=== PATIENT | female | born 1995 | race Caucasian/White ===

== ENCOUNTER 2016-09-01 06:41 | Emergency (ER) ==
[2016-09-01] MEDS ORDERED: MOTRIN PO ONE (07:08)
--- NOTE | 2016-09-01 07:16 | PROVIDER DOCUMENTATION ---
HPI-Female /OB/Breast - General Chief Complaint: Abdominal Pain Stated Complaint: ABD PAIN/VOMITING Time Seen by Provider: 09/01/16 07:04 Source: reports: patient Allergies/Adverse Reactions: Patient Allergies Allergy/AdvReac Type Severity Reaction Status Date / Time ondansetron HCl * Allergy Mild RASH Verified 09/01/16 06:58 [From Zofran] Home Medications: Home Medication List Medication Instructions Recorded Confirmed Last Taken Type Ibuprofen [Motrin] 800 mg PO TID PRN #30 tablet 09/01/16 Unknown Rx - History of Present Illness-Female /OB Nature of Presenting Problem: Pt startted her period last night and had severe cramps and tylenol didn't work. She has known endometriosis which has been treated twice laproscopically and has been stable until this period. Review of Systems - Adult - REVIEW OF SYSTEMS - ADULT Constitutional: denies: chills, fever Eyes: denies: discharge, blurred vision Ears, Nose, Mouth & Throat: denies: hearing loss, nose pain, throat swelling Cardiovascular: denies: chest pain, irregular heart rate, syncope Respiratory: denies: dyspnea on exertion, hemoptysis Gastrointestinal: denies: abdominal pain, constipation, diarrhea, difficulty swallowing, nausea, poor appetite, vomiting Genitourinary: denies: dysuria, hematuria Integumentary: denies: hives, mole changes Neurological: denies: ataxia, paresthesia, tremors Psychiatric: reports: no symptoms reported Endocrine: denies: goiter, cold intolerance, heat intolerance Hematologic/Lymphatic: denies: low blood count, lymphedema Allergic/Immunologic: denies: eczema, frequent infections, hay fever Past History - Adult - PAST MEDICAL HISTORY-ADULT Review of Records: reports: Nursing Assessment Review, Medications Reviewed Major Childhood Illnesses: reports: denies history Obstetrical/Gynecological: reports: endometriosis - PRIOR SURGERIES/PROCEDURES Surgical/Procedure History: reports: none, tonsillectomy - PRIOR HOSPITALIZATIONS Prior Hospitalizations: reports: none - IMMUNIZATION STATUS Childhood Immunizations: See Nurse Assessment Flu Vaccine: See Nurse Assessment - FAMILY HISTORY Family History: reviewed, not pertinent Physical Exam-General - PHYSICAL EXAM-ADULT Initial Vital Signs Reviewed: Yes - CONSTITUTIONAL General Appearance: appears well, alert, no apparent distress - EYES Eyes: PERRL/EOMI, pink conjunctivae - HEAD, EARS, NOSE, MOUTH & THROAT HENMT: normocephalic/atraumatic, moist mucous membranes, normal ENT inspection - RESPIRATORY Respiratory: lungs clear, normal breath sounds, no pleuratic chest pain, no respiratory distress, no accessory muscle use - CARDIOVASCULAR Cardiovascular: normal peripheral pulses, regular rate, rhythm, no edema, no gallop, no JVD, no murmur - CHEST (BREASTS) Chest/Breast: no tenderness - GASTROINTESTINAL (ABDOMEN) Abdominal Exam: normal bowel sounds, non tender, soft, no organomegaly, no pulsatile mass - GENITOURINARY Female Genitalia/Pelvic Exam: other (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) - LYMPHATIC Lymphatic: no adenopathy - MUSCULOSKELETAL Back Exam: normal inspection, no CVA tenderness, no vertebral tenderness Extremity: normal range of motion, non-tender, normal gait, normal inspection - SKIN Integumentary: normal color, normal turgor, warm/dry, other (numerous tatoos) - NEUROLOGIC Neurologic: sausage stuffer II-XII nml as tested, grossly normal, no motor/sensory deficits - PSYCHIATRIC Psych/Mental Status: normal mood/affect, normal thought content, normal thought process, oriented x 3 Progress - PLAN OF CARE/RESULTS Progress/Plan/Lab Results: Laboratory Tests 09/01/16 09/01/16 06:54 06:54 WBC 6.10 RBC 4.19 L Hgb 13.1 Hct 39.5 MCV 94.3 MCH 31.3 H MCHC 33.2 RDW Std Deviation 14.0 Plt Count 100 L MPV Not Reportable Immature Gran % (Auto) 0.0 Neut % (Auto) 40.5 L Lymph % (Auto) 45.6 Hill % (Auto) 11.1 H Eos % (Auto) 2.5 Baso % (Auto) 0.3 Immature Gran # (Auto) 0.00 Neut # (Auto) 2.47 Lymph # (Auto) 2.78 Hill # (Auto) 0.68 H Eos # (Auto) 0.15 Baso # (Auto) 0.02 Segmented Neutrophils 52 Lymphocytes 42 Monocytes 4 Eosinophils 2 Large Platelets OCCASIONAL Sodium 144 Potassium 3.6 Chloride 105 Carbon Dioxide 29 Anion Gap 10 BUN 11 Creatinine 0.9 Estimated GFR/1.73 m2 > 60 BUN/Creatinine Ratio 12 Glucose 87 Calculated Osmolality 286 Calcium 8.8 Total Bilirubin 0.21 AST 13 ALT 11 Alkaline Phosphatase 54 Total Protein 6.8 Albumin 4.0 Globulin 2.8 Albumin/Globulin Ratio 1.4 Orders Category Date Time Status ED: Urine Bedside ORDERED Care 09/01/16 06:53 Active CBC WITH DIFF [HEME] Stat Lab 09/01/16 06:54 Completed COMPREHENSIVE METABOLIC PANEL [CHEM] Stat Lab 09/01/16 06:54 Completed Ibuprofen [Motrin] Med 09/01/16 07:08 Discontinued 800 mg PO NOW ONE Vital Signs Temp Pulse Resp BP Pulse Ox 09/01/16 06:45 97.9 F 88 18 106/65 100 ondansetron HCl * [From Zofran] Allergy (Mild, Verified 09/01/16 06:58) RASH No Home Medications 09/01/16 I&O 08/31/16 09/01/16 09/02/16 06:59 06:59 06:59 Output Total 6 Balance -6 Laboratory 09/01/16 09/01/16 06:54 06:54 WBC 6.10 RBC 4.19 L Hgb 13.1 Hct 39.5 MCV 94.3 MCH 31.3 H MCHC 33.2 RDW Std Deviation 14.0 Plt Count 100 L MPV Not Reportable Immature Gran % (Auto) 0.0 Neut % (Auto) 40.5 L Lymph % (Auto) 45.6 Hill % (Auto) 11.1 H Eos % (Auto) 2.5 Baso % (Auto) 0.3 Immature Gran # (Auto) 0.00 Neut # (Auto) 2.47 Lymph # (Auto) 2.78 Hill # (Auto) 0.68 H Eos # (Auto) 0.15 Baso # (Auto) 0.02 Segmented Neutrophils 52 Lymphocytes 42 Monocytes 4 Eosinophils 2 Large Platelets OCCASIONAL Sodium 144 Potassium 3.6 Chloride 105 Carbon Dioxide 29 Anion Gap 10 BUN 11 Creatinine 0.9 Estimated GFR/1.73 m2 > 60 BUN/Creatinine Ratio 12 Glucose 87 Calculated Osmolality 286 Calcium 8.8 Total Bilirubin 0.21 AST 13 ALT 11 Alkaline Phosphatase 54 Total Protein 6.8 Albumin 4.0 Globulin 2.8 Albumin/Globulin Ratio 1.4 - REASSESSMENT Reassessment #1 Time Reassessed: 08:15 (ibuprofen helping and satisfied with that) Status: improving Departure - Departure Time of Disposition Order: 08:16 DIAGNOSIS: Dysmenorrhea Disposition: HOME 01 Certified Medical Emergency: Emergent Condition: Stable Additional Instructions: ED Follow Up Instructions: You have been treated by a care provider in the Emergency Department. These instructions are being provided to you so you can have an understanding of how to care for yourself upon discharge. Upon discharge from the Emergency Department, you are responsible for making arrangements for follow-up care by a physician of your choice. Take all prescribed medications as directed. Return to the Emergency Department immediately for any new or worsening symptoms. You may call the Physician Referral phone number at [phone] to obtain a list of Physicians who are taking new patients. Prescriptions: Ibuprofen [Motrin] 800 mg PO TID PRN #30 tablet PRN Reason: Pain
[2016-09-01 07:18] LABS: BASO% 0.3 % (0.0-0.8); EOS# 0.15 X1000 (0.0-0.7); EOS% 2.5 % (0.0-10.0); HEMATOCRIT 39.5 % (37.0-47.0); HEMOGLOBIN 13.1 g/dL (12.0-16.0); LYMPH# 2.78 X1000 (1.2-3.4); LYMPH% 45.6 % (20.5-51.1); MANUAL DIFF NEEDED? YES; MCH 31.3 PG (27-31); MCHC 33.2 g/dL (33-37); MCV 94.3 FL (81-99); MONO# 0.68 X1000 (0.11-0.59); MONO% 11.1 % (1.7-9.3); NEUT% 40.5 % (42.2-75.2); PLT 100 X1000 (130-400); RBC 4.19 XMIL (4.2-5.4)
[2016-09-01 07:35] LABS: AGAP 10; ALKALINE PHOSPHATASE 54 U/L (32-104); BUN 11 mg/dL (8-22); CALCIUM 8.8 mg/dL (8.8-10.2); CHLORIDE 105 mmol/L (98-107); COSMO 286; GOT 13 U/L (10-30); GPT 11 U/L (10-36); POTASSIUM 3.6 mmol/L (3.5-5.1); SODIUM 144 mmol/L (136-145); TCO2 29 mmol/L (25-35); TOTAL BILIRUBIN 0.21 mg/dL (0.20-1.00); TOTAL PROTEIN 6.8 g/dL (6.3-8.3)
[2016-09-01 07:46] LABS: EOS 2 % (1-10); LYMPHS 42 % (21-51); MONO 4 % (1-9)
[2016-09-01 07:47] LABS: LARGE PLATELETS OCCASIONAL
[2016-09-01 08:24] VITALS: BP 107/65
== END 2016-09-01 08:35 | disposition home or self-care (01) ==
LOC: ED 06:41
DX: N94.6 Dysmenorrhea, unspecified (principal); R10.9 Unspecified abdominal pain; R11.10 Vomiting, unspecified
CPT/HCPCS: 80053; 85025